=== PATIENT | male | born 1935 | race Caucasian/White ===

== ENCOUNTER 2022-09-06 06:59 | Day surgery (SDC) | payer MEDICARE, BC ==
[2022-09-05 09:35] VITALS: BMI 27.2
[~2022-09-06 06:59] MED LIST: ALPRAZolam 0.25 MG TAB PO PRN; ALPRAZolam 0.5 MG TAB PO PRN; ASPIRIN 325 MG TAB PO STA; ATORVASTATIN 80 MG TAB PO STA; HEPARIN SODIUM,PORCINE 10,000 UNIT in SODIUM CHLORIDE 0.9% 1,000 ML IRRIGATION PRN; HEPARIN SODIUM,PORCINE 2,500 UNIT in SODIUM CHLORIDE 0.9% 250 ML IRRIGATION PRN; NITROGLYCERIN SL TABS 0.4 MG TAB SUBLINGUAL PRN; SODIUM CHLORIDE 0.9% 1,000 ML in EMPTY BAG 1 BAG IV SCH
[2022-09-06] MEDS ORDERED: SODIUM CHLORIDE 0.9% 1,000 ML in EMPTY BAG 1 BAG IV ONE (07:00)
[2022-09-06] MEDS ORDERED: SODIUM CHLORIDE 0.9% 1,000 ML IV ONE (07:06)
[2022-09-06 07:23] VITALS: RESP 16; TEMP 97.1
[2022-09-06 07:28] LABS: Glucose,Whole Blood 196 mg/dL (70-110)
[2022-09-06 07:29] LABS: Basophils % (A) 0 %; Eosinophils # (A) 0.1 k/uL (0-0.7); Eosinophils % (A) 1 %; HCT 33.5 % (39.0-53.0); HGB 11.1 gm/dL (13.0-17.5); Lymphocytes # (A) 0.8 k/uL (1.0-4.8); Lymphocytes % (A) 7 %; MCH 31.2 pg (25.0-35.0); MCHC 33.1 g/dL (31.0-37.0); MCV 94.2 fL (80.0-100.0); Mean Platelet Volume 8.2; Monocytes # (A) 0.5 k/uL (0-1.0); Monocytes % (A) 5 %; Neutrophils # (A) 9.1 k/uL (1.3-7.7); Neutrophils % (A) 86 %; Platelet Count 184 k/uL (150-450); RBC 3.56 m/uL (4.30-5.90); RDW 13.7 % (11.5-15.5); WBC 10.6 k/uL (3.8-10.6)
[2022-09-06] MEDS ORDERED: LIDOCAINE 1% INJ 10MG/ML (20 ML MDV) ONE (10:53)
[2022-09-06] MEDS: MIDAZOLAM 2 MG/2 ML VIAL IV ONE ×2 (11:03→11:24)
[2022-09-06] MEDS ORDERED: LIDOCAINE 1% INJ 10MG/ML (20 ML MDV) SQ ONE (11:04)
[2022-09-06] MEDS ORDERED: IOPAMIDOL-370 100ML BTL INJ ONE (11:42)
[2022-09-06] MEDS ORDERED: SODIUM CHLORIDE 0.9% 1,000 ML IV SCH (11:54)
[2022-09-06 16:31] VITALS: BP 129/69; PULSE 71
--- NOTE | 2022-09-06 22:31 | CC ---
CARDIAC CATHETERIZATION REPORT PROCEDURES PERFORMED: Left heart catheterization, coronary angiography, and selective injection of bypass grafts. PERFORMED BY: Dr. Morgan Cabrera. Moderate conscious sedation time was 30 minutes. The patient was administered Versed. Oxygen saturation, hemodynamics, and EKG were monitored closely. 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 He has been having symptoms of increasing angina and therefore, he was advised cardiac cath after due discussion regarding risks, benefits, and options. He underwent aortocoronary bypass surgery in 2001 and at that time, he had a left internal mammary artery graft to LAD. A free right internal mammary graft from the PADILLA to the obtuse marginal and a left radial artery graft was used to graft the RCA. He had a cardiac cath in 2012, which revealed that the grafts were patent. Because of anginal symptoms, he was advised cardiac cath. PROCEDURE NOTE: Under local anesthesia and strict aseptic precautions, a 6-Comoran introducer was placed in the right femoral artery. I used a JL-4 diagnostic catheter for the left coronary injection. I used a Flor catheter for the injection of the lumbee RCA, free radial artery graft to the RCA and the same Flor catheter was used to do the PADILLA injection. A pigtail catheter was used to check LV pressures. The sheath was taken out and Angio- Seal device was used to secure hemostasis. The patient did not have any LV-gram performed. I used about 80 mL of contrast totally. The patient tolerated procedure well without complications. Findings were discussed with the patient and and he will be discharged later on today if he remains stable. CARDIAC CATHETERIZATION FINDINGS: The left ventricular end-diastolic pressure was 15 mmHg without any gradient across aortic valve. CORONARY ANGIOGRAPHY FINDINGS: LEFT MAIN CORONARY ARTERY: This is a patent vessel, has about a 15% to 20% narrowing and trifurcates into LAD, ramus, and circumflex. Left main itself has about a 15% to 20% narrowing. LEFT ANTERIOR DESCENDING CORONARY ARTERY: This is totally occluded after the origin of a small septal and diagonal branch, and the opacified LAD has about a 50% narrowing, no change from before. RAMUS INTERMEDIUS: This is a free fair caliber vessel, supplies a fair amount of myocardium. Minor irregularities. No significant disease. LEFT POSTERIOR CIRCUMFLEX CORONARY ARTERY: This is an artery that just runs in the AV groove. The obtuse marginal is totally occluded and grafted. The circumflex has about a 40% to 50% lesion in the proximal portion, but no significant stenosis. RIGHT CORONARY ARTERY: This vessel is totally occluded in the midportion with limited antegrade flow. FREE RADIAL ARTERY GRAFT TO RCA: This graft is widely patent in its origin and insertion site and it opacifies the RCA. The PLV branch has minor irregularities. PDA has about a 40% to 50% narrowing, after it comes off from the main RCA. PDA is smaller. PLV is larger. Some diffuse disease in the PDA, but no critical stenosis. PLV has minor irregularities. LEFT INTERNAL MAMMARY ARTERY GRAFT TO LAD: This graft is widely patent in its origin, course, insertion site, and opacifies the entire LAD, which has minor irregularities. No significant disease. Several smaller branches that come off from the LAD as well. Free right internal mammary artery graft from the PADILLA to obtuse marginal branch of circumflex. This graft is widely patent in its origin and attachment to the PADILLA and also distally to the obtuse marginal. The opacified obtuse marginal is also free of significant disease. This graft is free of significant disease. Left ventriculogram was not performed. FINAL IMPRESSION: This patient has a right-dominant system. Filling pressures are slightly elevated. No gradient across aortic valve. There is total occlusion of mid RCA, mid LAD, circumflex marginal, and 40% stenosis involving the lumbee circumflex, 50% stenosis involving the LAD that is opacified. The free radial artery graft to the RCA is widely patent with the PDA branch of about 40% to 45% narrowing. The PADILLA to LAD and also the free VERNA from LAD to the obtuse marginal are widely patent with excellent flow. RECOMMENDATIONS: Continued medical therapy with risk factor modification is advised. He also has some anemia with hemoglobin of 10.7, probably related to radiation therapy after prostate cancer and we will see if we can optimize his hemoglobin level. I will talk to his PCP. The patient will be discharged later on today. Findings were discussed with the patient and family. MMODL / IJN: [id number] /
== END 2022-09-06 16:13 | disposition home or self-care (01) ==
LOC: CATHCVL 06:59
PROVIDERS: ATTEND Internal Medicine Interventional Cardiology
DX: I25.119 Atherosclerotic heart disease of native coronary artery with unspecified angina pectoris (principal); I25.82 Chronic total occlusion of coronary artery; E11.9 Type 2 diabetes mellitus without complications; E78.5 Hyperlipidemia, unspecified; I10 Essential (primary) hypertension; Z95.1 Presence of aortocoronary bypass graft
CPT/HCPCS: 93459; 85025; C1760; C1769 ×3; C1894; J2250; J2001; Q9967